=== PATIENT | female | born 1970 | race Caucasian/White ===

== ENCOUNTER 2021-07-20 02:38 | Emergency (ER) | payer OTHER ==
[2021-07-20 03:31] LABS: BASOPHIL 0.4 % (0-2); EOSINOPHIL 6.6 % (0-5); HCT 44.4 % (37.0-47.0); HGB 14.2 g/dl (12.5-16.0); LYMPHOCYTE 22.2 % (15-48); MCH 29.1 pg (25.0-31.0); MONOCYTE 6.2 % (0-12); MPV 10.6 fL (6.0-9.5); NEUTROPHIL 64.4 % (41-80); NRBC 0; PLT 194 K/uL (150-400); RBC 4.88 M/uL (4.20-5.40); RDW 13.5 % (11.5-14.0); WBC 9.2 K/uL (4.0-10.5)
[2021-07-20 03:59] LABS: ALBUMIN 4.4 g/dL (3.4-5.0); BILIRUBIN - TOTAL 0.4 mg/dL (0.2-1.0); BUN/CREAT RATIO (CALC) 22.5 RATIO; CREATININE 0.89 mg/dL (0.51-0.95); GLOBULIN (CALCULATION) 2.8 g/dL; POTASSIUM 3.8 mmol/L (3.5-5.1); TOTAL PROTEIN 7.2 g/dL (6.4-8.2)
[2021-07-20 04:45] LABS: BILIRUBIN NEGATIVE (NEGATIVE); BLOOD NEGATIVE Ery/uL (NEGATIVE); CLARITY CLEAR (CLEAR); COLOR YELLOW (YELLOW); GLUCOSE (U) NORMAL (NORMAL); LEUKOCYTES NEGATIVE Leu/uL (NEGATIVE); NITRITE NEGATIVE (NEGATIVE); PROTEIN NEGATIVE (NEGATIVE); UROBILINOGEN 0.2 mg/dL (0.2-1.0)
[2021-07-20] MEDS ORDERED: ZOFRAN4 M1 PO (05:02)
[2021-07-20] MEDS ORDERED: FLOMAX0.4 MG PO (05:02)
[2021-07-20] MEDS ORDERED: SENNA S TABLET1 EACH PO (06:08)
[2021-07-20] MEDS ORDERED: PERCOCET 5-3251 EACH PO (06:08)
[2021-07-20] MEDS ORDERED: MIRALAX 238GM238 GM PO (06:08)
[2021-07-20] MEDS ORDERED: ONDANSETRON ODT4 MG PO (06:10)
== END 2021-07-20 07:25 | disposition home or self-care (01) ==
LOC: FER 02:38
PROVIDERS: Internal Medicine
DX: I88.0 Nonspecific mesenteric lymphadenitis (principal); K59.00 Constipation, unspecified
CPT/HCPCS: 36415; 80053; 81003; 83690; 84484; 85025; 93005; J1170; J2405; J2550; J7030

== ENCOUNTER 2021-09-04 10:03 | Emergency (ER) | payer OTHER ==
[~2021-09-04 10:03] MED LIST: FLOMAX0.4 MG PO; MIRALAX 238GM238 GM PO; ONDANSETRON ODT4 MG PO; PERCOCET 5-3251 EACH PO; SENNA S TABLET1 EACH PO; ZOFRAN4 M1 PO
[2021-09-04 11:07] LABS: BILIRUBIN NEGATIVE (NEGATIVE); BLOOD NEGATIVE Ery/uL (NEGATIVE); CLARITY CLEAR (CLEAR); COLOR YELLOW (YELLOW); GLUCOSE (U) NORMAL (NORMAL); LEUKOCYTES NEGATIVE Leu/uL (NEGATIVE); NITRITE NEGATIVE (NEGATIVE); PROTEIN NEGATIVE (NEGATIVE); SPECIFIC GRAVITY >=1.030 (1.001-1.030); UROBILINOGEN 0.2 mg/dL (0.2-1.0); pH 5.5 (5.0-9.0)
[2021-09-04 11:09] LABS: BASOPHIL 0.3 % (0-2); EOSINOPHIL 0 % (0-5); HCT 42.3 % (37.0-47.0); HGB 13.7 g/dl (12.5-16.0); MCH 29.6 pg (25.0-31.0); MCHC 32.4 g/dL (32.0-36.0); MCV 91.4 fL (78.0-100.0); MONOCYTE 8.4 % (0-12); MPV 10.7 fL (6.0-9.5); NRBC 0; PLT 135 K/uL (150-400); RBC 4.63 M/uL (4.20-5.40); RDW 13.2 % (11.5-14.0); WBC 3.2 K/uL (4.0-10.5)
[2021-09-04 11:24] LABS: ALBUMIN 4.2 g/dL (3.4-5.0); BILIRUBIN - TOTAL 0.3 mg/dL (0.2-1.0); BUN/CREAT RATIO (CALC) 13.1 RATIO; CREATININE 0.61 mg/dL (0.51-0.95); GLOBULIN (CALCULATION) 3.1 g/dL; POTASSIUM 4.3 mmol/L (3.5-5.1); TOTAL PROTEIN 7.3 g/dL (6.4-8.2)
[2021-09-04] MEDS ORDERED: NORCO 5-325 TA1 EACH PO (14:13)
[2021-09-04] MEDS ORDERED: NAPROXEN500 MG PO (14:13)
== END 2021-09-04 15:00 | disposition home or self-care (01) ==
LOC: FER 10:03
PROVIDERS: Emergency Medicine
DX: U07.1 COVID-19 (principal); R10.32 Left lower quadrant pain
CPT/HCPCS: 36415; 80053; 81003; 85025; J1170; J1885; J2405; J7030; U0002